=== PATIENT | female | born 1935 | race Caucasian/White ===

== ENCOUNTER 2017-01-10 14:46 | Emergency (ER) | payer BC ==
[~2017-01-10] VITALS: Ht 162.6 cm; Wt 54.4 kg
[2017-01-10 14:46] VITALS: BP 114/60
== END 2017-01-10 15:34 | disposition home or self-care (01) ==
LOC: ER 14:48
DX: S80.871D Other superficial bite, right lower leg, subsequent encounter (principal); J45.909 Unspecified asthma, uncomplicated; W55.01XD Bitten by cat, subsequent encounter
CPT/HCPCS: 99283; A4606; A6402; Z7610

== ENCOUNTER 2017-04-12 22:08 | Emergency (ER) | payer BC, OTHER ==
[~2017-04-12] VITALS: Ht 165.1 cm; Wt 53.5 kg
--- NOTE | 2017-04-12 22:50 | NUR ---
pt ambulatory w/ steady gait, c/o rt avila bump, infection s/p cat bite x01/06/17, seen at [facility] but was never given any antibiotics, now having pain w/ increased bump, redness to rt avila. AOx4, afebrile w/ resp even & unlabored, mild discomfort noted. JAMES Moore at bedside for further eval.
--- NOTE | 2017-04-12 22:59 | NUR ---
XR RT TIBIA FIBULA AT BEDSIDE.
[2017-04-12] MEDS ORDERED: IBUPROFEN 600 MG TABLET PO ONE ×2 (23:00→23:15)
[2017-04-12] MEDS ORDERED: HYDROCODONE/APAP 10/325MG 1 EA TABLET PO ONE (23:00)
[2017-04-12] MEDS ORDERED: VANCOMYCIN 1 GM in IV D5W 250 ML IV ONE (23:00)
[2017-04-12] MEDS ORDERED: AMOX/CLAVULANATE 875 MG TABLET PO ONE (23:00)
--- NOTE | 2017-04-12 23:05 | NUR ---
JEANETTE STARTED, LABS DRAWN & SENT.
[2017-04-12] MEDS ORDERED: VANCOMYCIN 1 GM VIAL ONE (23:14)
[2017-04-12] MEDS ORDERED: HYDROCODONE/APAP 10/325MG 1 EA TABLET ONE (23:15)
--- NOTE | 2017-04-12 23:27 | NUR ---
IV ANTIBIOTICS ADMINISTERED ORDERED.
[2017-04-12 23:29] LABS: RED BLOOD CELL COUNT(AUTO) 4.14 MIL/uL (4.0-5.2); WHITE BLOOD COUNT (AUTO) 7.8 K/uL (4.3-11.0)
[2017-04-12 23:30] LABS: BASOPHILS % (AUTO) 0.6 % (0.0-2.0); EOSINOPHILS % (AUTO) 9.5 % (0.0-6.0); HEMATOCRIT 40 % (33-45); HEMOGLOBIN 12.9 g/dL (11.5-14.8); LYMPHOCYTES % (AUTO) 29.9 % (20.0-44.0); MEAN CORPUSCULAR HEMOGLOBIN 31 PG (26.0-33.0); MEAN CORPUSCULAR HGB CONC 33 g/dl (31.0-36.0); MEAN CORPUSCULAR VOLUME 96 fL (82-100); MONOCYTES % (AUTO) 10.4 % (2.0-12.0); NEUTROPHILS % (AUTO) 49.6 % (43.0-81.0); PLATELET COUNT (AUTO) 251 /CMM (150-450); RDW COEFFICIENT OF VARIATION 12.7 (11.5-15.0)
--- NOTE | 2017-04-12 23:32 | NUR ---
PT AMBULATORY W/ STEADY GAIT TO RESTROOM.
[2017-04-12 23:35] LABS: SODIUM SERUM 144 mmol/L (136-145)
[2017-04-12 23:36] LABS: CALCIUM, SERUM 9.3 mg/dL (8.5-10.1); CARBON DIOXIDE 29 mmol/L (21-32); CHLORIDE 107 mmol/L (98-107); GLUCOSE 111 mg/dL (74-106); POTASSIUM 4.1 mmol/L (3.5-5.1); UREA NITROGEN, BLOOD 21 mg/dL (7-18)
--- NOTE | 2017-04-12 23:49 | NUR ---
JAMES Moore at bedside for update on pt status.
[2017-04-13 00:30] VITALS: BP 144/73
--- NOTE | 2017-04-13 00:31 | NUR ---
IV removed. Catheter intact and site benign. Pressure and 4x4 applied to site. No bleeding noted.Patient discharged to home in stable condition. Written and verbal after care instructions given. Patient verbalizes understanding of instruction.
[2017-04-13] MEDS ORDERED: LATA2.5D7 EACHEYE (16:02)
[2017-04-13] MEDS ORDERED: ASPI81TA2 PO (16:02)
[2017-04-13] MEDS ORDERED: DORZ10DR11 EACHEYE (16:02)
[2017-04-13] MEDS ORDERED: AMOX-430 PO (16:07)
[2017-04-13] MEDS ORDERED: HYDR-552 PO (16:07)
== END 2017-04-13 00:31 | disposition home or self-care (01) ==
LOC: ER 22:11
DX: L03.115 Cellulitis of right lower limb (principal); J45.909 Unspecified asthma, uncomplicated
CPT/HCPCS: 36415; 73590; 80048; 85025; 96365; 99285; A4606; J3370; Z7610

== ENCOUNTER 2017-04-13 14:38 | Emergency (ER) | payer BC ==
[~2017-04-13] VITALS: Ht 165.1 cm; Wt 53.5 kg
--- NOTE | 2017-04-13 14:45 | NUR ---
PATIENT PRESENTS TO ER C/O RIGHT LOWER EXTREMITY WOUND S/P CAT BITE LAST December,. PATIENT C/O PAIN AND REDNESS ON RIGHT LEG. PATIENT IS A/OX 4, BREATHING EVEN AND UNLABORED. NO SOB. VITALS STABLE. SAFETY AND COMFORT MEASURES IN PLACE. AWAITING MD ORDERS.
--- NOTE | 2017-04-13 15:00 | NUR ---
MARBLE MASON AT BEDSIDE.
[2017-04-13 15:27] LABS: BASOPHILS # (AUTO) 0.1 /CMM (0.0-0.2); EOSINOPHILS # (AUTO) 0.6 /CMM (0.0-0.7); EOSINOPHILS % (AUTO) 8.3 % (0.0-6.0); MONOCYTES # (AUTO) 0.5 /CMM (0.1-1.30); WHITE BLOOD COUNT (AUTO) 7.3 K/uL (4.3-11.0)
[2017-04-13 15:29] LABS: BASOPHILS % (AUTO) 0.7 % (0.0-2.0); HEMATOCRIT 39 % (33-45); HEMOGLOBIN 13.2 g/dL (11.5-14.8); LYMPHOCYTES # (AUTO) 1.9 /CMM (0.8-4.8); LYMPHOCYTES % (AUTO) 25.9 % (20.0-44.0); MEAN CORPUSCULAR HEMOGLOBIN 32 PG (26.0-33.0); MEAN CORPUSCULAR HGB CONC 34 g/dl (31.0-36.0); MEAN CORPUSCULAR VOLUME 94 fL (82-100); MONOCYTES % (AUTO) 6.2 % (2.0-12.0); NEUTROPHILS # (AUTO) 4.2 /CMM (1.8-8.9); NEUTROPHILS % (AUTO) 58.9 % (43.0-81.0); PLATELET COUNT (AUTO) 267 /CMM (150-450); RDW COEFFICIENT OF VARIATION 11.6 (11.5-15.0); RED BLOOD CELL COUNT(AUTO) 4.16 MIL/uL (4.0-5.2)
--- NOTE | 2017-04-13 15:30 | NUR ---
NEW IV STARTED ON RFA, 20 G. BLOOD DRAWN AND SENT TO LAB. PATIENT MEDICATED PER MD ORDERS.
[2017-04-13 15:37] LABS: CALCIUM, SERUM 9.7 mg/dL (8.5-10.1); CARBON DIOXIDE 24 mmol/L (21-32); CHLORIDE 103 mmol/L (98-107); CREATININE 1.2 mg/dL (0.6-1.3); GLUCOSE 91 mg/dL (74-106); POTASSIUM 5.8 mmol/L (3.5-5.1); SODIUM SERUM 135 mmol/L (136-145); UREA NITROGEN, BLOOD 27 mg/dL (7-18)
[2017-04-13 15:41] LABS: INR 0.93 (0.87-1.13); PROTHROMBIN TIME 9.7 SECS (9.5-12.7)
[2017-04-13 15:43] LABS: ALANINE AMINOTRANSFERASE 22 U/L (12-78); ALBUMIN 3.6 g/dL (3.4-5.0); ALKALINE PHOSPHATASE 65 U/L (46-116); ASPARTATE AMINOTRANSFERASE 46 U/L (15-37); BILIRUBIN,TOTAL 0.5 mg/dL (0.2-1.0); TOTAL PROTEIN, SERUM 7.5 g/dL (6.4-8.2)
[2017-04-13] MEDS ORDERED: LATA2.5D7 EACHEYE (16:02)
[2017-04-13] MEDS ORDERED: ASPI81TA2 PO (16:02)
[2017-04-13] MEDS ORDERED: DORZ10DR11 EACHEYE (16:02)
[2017-04-13] MEDS ORDERED: AMOX-430 PO (16:07)
[2017-04-13] MEDS ORDERED: HYDR-552 PO (16:07)
--- NOTE | 2017-04-13 16:26 | NUR ---
CALLED , LEFT MESSAGE ON VOICEMAIL
--- NOTE | 2017-04-13 16:40 | NUR ---
CALLED AGAIN, LEFT MESSAGE ON VOICEMAIL
[2017-04-13 17:14] VITALS: BP 148/62
--- NOTE | 2017-04-13 17:14 | NUR ---
Patient discharged to home in stable condition. Prescription handed to patient. Written and verbal after care instructions given. Patient verbalizes understanding of instruction.
== END 2017-04-13 17:20 | disposition home or self-care (01) ==
LOC: ER 14:41 → UNDOADMIN 16:50 → MED 16:50
DX: S81.851A Open bite, right lower leg, initial encounter (principal); L03.115 Cellulitis of right lower limb; J45.909 Unspecified asthma, uncomplicated; W55.01XA Bitten by cat, initial encounter; Y93.89 Activity, other specified; Y92.89 Other specified places as the place of occurrence of the external cause; Y99.8 Other external cause status
CPT/HCPCS: 36415; 71010-TC; 80048-TC; 80076-TC; 83605-TC; 85025-TC; 85730-TC; 87040-TC; 87070-TC; A4606; J2270; J2405; J2543; J3370; J7030; J7060; Z7610

== ENCOUNTER 2017-04-17 12:16 | Emergency (ER) | payer BC, OTHER ==
[~2017-04-17] VITALS: Ht 165.1 cm; Wt 53.5 kg
[~2017-04-17 12:16] MED LIST: AMOX-430 PO; ASPI81TA2 PO; DORZ10DR11 EACHEYE; HYDR-552 PO; LATA2.5D7 EACHEYE
--- NOTE | 2017-04-17 12:30 | NUR ---
SELF PRESENTS TO ED DT ABSCESS TO RLE.NOTED RLE WITH ELEVATED/DRY SKIN. NO SWELLING, NO REDNESS, NO DISCHARGE REPORTED.VSS. PT ON ATB.
[2017-04-17] MEDS ORDERED: LIDOCAINE 0.5%-EPI 1:200,000 50 ML VIAL ONE (12:52)
[2017-04-17] MEDS ORDERED: LIDOCAINE /MPF 1% VIAL 5 ML VIAL ONE (12:53)
--- NOTE | 2017-04-17 12:54 | NUR ---
MD JHAVERI AT BEDSIDE
[2017-04-17] MEDS ORDERED: LIDOCAINE 1% INJ 50 ML MDV IJ ONE (13:00)
[2017-04-17 14:25] VITALS: BP 120/60
--- NOTE | 2017-04-17 14:25 | NUR ---
Patient discharged to home in stable condition. Written and verbal after care instructions given. Patient verbalizes understanding of instruction.
== END 2017-04-17 14:26 | disposition home or self-care (01) ==
LOC: ER 12:17
DX: M79.89 Other specified soft tissue disorders (principal); L03.115 Cellulitis of right lower limb; J45.909 Unspecified asthma, uncomplicated; E11.9 Type 2 diabetes mellitus without complications; Z79.82 Long term (current) use of aspirin; F17.210 Nicotine dependence, cigarettes, uncomplicated
CPT/HCPCS: 10060; 88305 ×2; 88312; 99283; 99406; A4606; A6402; J3490 ×2; Z7610

== ENCOUNTER 2017-04-20 12:45 | Emergency (ER) | payer BC, MEDICARE, OTHER ==
[~2017-04-20] VITALS: Ht 165.1 cm; Wt 53.5 kg
[2017-04-20 12:45] VITALS: BP 126/65
[2017-04-20] MEDS ORDERED: HYDROCODONE/APAP 5/325MG 1 EACH TABLET PO ONE (13:30)
[2017-04-20] MEDS ORDERED: HYDROCODONE/APAP 5/325MG 1 EACH TABLET ONE (13:33)
[2017-04-20 13:43] LABS: APPEARANCE,URINE Slightly Cloudy (CLEAR); BILIRUBIN,URINE SMALL (NEGATIVE); BLOOD, URINE Negative Ery/uL (NEGATIVE); KETONES,URINE Trace (NEGATIVE); LEUKOCYTE ESTERASE ,URINE Trace (NEGATIVE); NITRITE, URINE Negative (NEGATIVE); PH,URINE 5.5 (5.0-8.0); PROTEIN,URINE Negative (NEGATIVE); UGLUCOSE Negative (NEGATIVE); UROBILINOGEN,URINE 0.2 EU/dL (0.2)
[2017-04-20 13:44] LABS: COLOR,URINE Dark Yellow (YELLOW)
[2017-04-20 13:52] LABS: BACTERIA,URINE Few /HPF (None Seen); RBC,URINE 0-3 /HPF (0-2); SQUAMOUS EPITHELIAL CELL,UR Few /HPF (None Seen); URIC ACID CRYSTALS,URINE Moderate /HPF (None Seen); URINE AMORPHOUS URATE Few /HPF (None Seen)
--- NOTE | 2017-04-20 14:17 | NUR ---
WOUND CARE PROVIDED. PT IS D/C HOME IN STABLE CONDITION.
== END 2017-04-20 14:21 | disposition home or self-care (01) ==
LOC: ER 12:47
DX: Z48.00 Encounter for change or removal of nonsurgical wound dressing (principal); L03.116 Cellulitis of left lower limb; R30.0 Dysuria; J45.909 Unspecified asthma, uncomplicated
CPT/HCPCS: 81001; 99284; A4606; Z7610; 81000-TC

== ENCOUNTER 2017-06-14 23:45 | Emergency (ER) | payer BC, OTHER ==
[~2017-06-14] VITALS: Ht 160 cm; Wt 54.4 kg
--- NOTE | 2017-06-14 23:55 | NUR ---
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 +N -V/D. PLACED ON VS MONITORING. GOWNED. COMFORT MEASURES RENDERED.
[2017-06-15] MEDS ORDERED: ONDANSETRON HCL/PF 4 MG/2 ML VIAL IVP ONE
[2017-06-15] MEDS ORDERED: IV NS 0.9% 500 ML BAG IV ONE
[2017-06-15] MEDS ORDERED: HYDROMORPHONE INJ 2 MG/ML DISP.SYRIN IV ONE
--- NOTE | 2017-06-15 | NUR ---
STARTED A SALINE LOCK ON THE LEFT HAND G20.
[2017-06-15] MEDS ORDERED: HYDROMORPHONE 1 MG/1 ML DISP.SYRIN ONE (00:09)
[2017-06-15] MEDS ORDERED: ONDANSETRON HCL/PF 4 MG/2 ML VIAL ONE (00:12)
[2017-06-15 00:21] LABS: BASOPHILS # (AUTO) 0.1 /CMM (0.0-0.2); BASOPHILS % (AUTO) 0.7 % (0.0-2.0); EOSINOPHILS # (AUTO) 0.5 /CMM (0.0-0.7); EOSINOPHILS % (AUTO) 6.8 % (0.0-6.0); HEMATOCRIT 44 % (33-45); HEMOGLOBIN 14.2 g/dL (11.5-14.8); LYMPHOCYTES # (AUTO) 2.2 /CMM (0.8-4.8); LYMPHOCYTES % (AUTO) 29.8 % (20.0-44.0); MEAN CORPUSCULAR HEMOGLOBIN 31 PG (26.0-33.0); MEAN CORPUSCULAR HGB CONC 33 g/dl (31.0-36.0); MEAN CORPUSCULAR VOLUME 95 fL (82-100); MONOCYTES # (AUTO) 0.7 /CMM (0.1-1.30); NEUTROPHILS % (AUTO) 53.7 % (43.0-81.0); PLATELET COUNT (AUTO) 291 /CMM (150-450); RDW COEFFICIENT OF VARIATION 13.4 (11.5-15.0); WHITE BLOOD COUNT (AUTO) 7.5 K/uL (4.3-11.0)
[2017-06-15 00:27] LABS: CALCIUM, SERUM 10.7 mg/dL (8.5-10.1); CARBON DIOXIDE 28 mmol/L (21-32); CHLORIDE 101 mmol/L (98-107); CREATININE 1.3 mg/dL (0.6-1.3); GLUCOSE 142 mg/dL (74-106); POTASSIUM 5.1 mmol/L (3.5-5.1); SODIUM SERUM 138 mmol/L (136-145); UREA NITROGEN, BLOOD 25 mg/dL (7-18)
[2017-06-15 00:31] LABS: INR 0.9 (0.87-1.13); PROTHROMBIN TIME 9.4 SECS (9.5-12.7)
[2017-06-15 00:34] LABS: TROPONIN I < 0.017 ng/mL (0.00-0.056)
[2017-06-15 00:38] LABS: ALANINE AMINOTRANSFERASE 32 U/L (12-78); ALBUMIN 3.8 g/dL (3.4-5.0); ALKALINE PHOSPHATASE 66 U/L (46-116); ASPARTATE AMINOTRANSFERASE 21 U/L (15-37); BILIRUBIN,TOTAL 0.2 mg/dL (0.2-1.0); LIPASE 172 U/L (73-393); TOTAL PROTEIN, SERUM 7.9 g/dL (6.4-8.2)
--- NOTE | 2017-06-15 00:48 | NUR ---
URINE COLLECTED VIA CLEAN CATCH, AND PICKED UP BY LAB. PATIENT TO RADIOLOGY.
--- NOTE | 2017-06-15 00:59 | NUR ---
PATIENT BACK FROM RADIOLOGY.
[2017-06-15 01:11] LABS: BILIRUBIN,URINE NEGATIVE (NEGATIVE); BLOOD, URINE NEGATIVE Ery/uL (NEGATIVE); COLOR,URINE YELLOW (YELLOW); KETONES,URINE NEGATIVE (NEGATIVE); LEUKOCYTE ESTERASE ,URINE 1+ (NEGATIVE); NITRITE, URINE NEGATIVE (NEGATIVE); PROTEIN,URINE NEGATIVE (NEGATIVE); UGLUCOSE NEGATIVE (NEGATIVE); UROBILINOGEN,URINE 0.2 EU/dL (0.2)
[2017-06-15 01:18] LABS: APPEARANCE,URINE HAZY (CLEAR)
[2017-06-15 01:25] LABS: BACTERIA,URINE None seen /HPF (None Seen); RBC,URINE 0-2 /HPF (0-2); SQUAMOUS EPITHELIAL CELL,UR Moderate /HPF (None Seen); YEAST,URINE Rare /HPF (None Seen)
--- NOTE | 2017-06-15 02:32 | NUR ---
patient is resting well in bed at this time, nad noted. vss. ongoing monitoring.
--- NOTE | 2017-06-15 02:35 | NUR ---
TICO MCFARLANE ([facility]) [phone]
--- NOTE | 2017-06-15 02:50 | NUR ---
PAGED DR. SHELTON. WAITING FOR CALL BACK.
--- NOTE | 2017-06-15 03:10 | NUR ---
Call from Andriy Lawrence System Safety Manager, working on pt transfer. .
[2017-06-15] MEDS ORDERED: CEFTRIAXONE 1GM BAG (ER ONLY) 50 ML IV ONE (03:21)
[2017-06-15] MEDS ORDERED: CEFTRIAXONE 1GM BAG (ER ONLY) 1 GM/50 ML PIGGYBACK IV ONE (03:30)
--- NOTE | 2017-06-15 06:05 | NUR ---
assisted patient on a bedpan, patient voided freely. vss. nad noted.
--- NOTE | 2017-06-15 06:33 | NUR ---
call from [facility] nurse outreach case manager. pt accepted at [facility] by dr york. room [phone]. # for report [phone]
[2017-06-15 07:12] VITALS: BP 107/66
[2017-06-15] MEDS ORDERED: LIDOCAINE VISCOUS 2% UD 15 ML UDC ONE (07:14)
--- NOTE | 2017-06-15 07:16 | NUR ---
Report given to Marilee MOSS at [facility] for transfer and parul.
--- NOTE | 2017-06-15 07:27 | NUR ---
Endorsed care to ambulance staff for moss picker. Patient remains alert and responsive. all needs attended. vss.
== END 2017-06-15 07:29 | disposition short-term general hospital (02) ==
LOC: ER 23:49
DX: N13.30 Unspecified hydronephrosis (principal); N36.8 Other specified disorders of urethra; J45.909 Unspecified asthma, uncomplicated; K57.30 Diverticulosis of large intestine without perforation or abscess without bleeding; Z79.82 Long term (current) use of aspirin
CPT/HCPCS: 36415; 74176; 80048; 80076; 81001; 83690; 84484; 85025; 85730; 87086; 93005; 96365; 96375; 99285; A4606; J0696; J1170; J2405; J7040; 81000-TC; Z7610